=== PATIENT | male | born 1970 | race Caucasian/White ===

== ENCOUNTER → 2023-08-16 06:27 | Day surgery (SDC) | payer BC, SELFPAY ==
[2023-08-16 07:46] LABS: Glucose - Point of Care 120 mg/dl (70-99)
== END ==
LOC: GI 06:27
PROVIDERS: ATTENDING PHYSICIAN Internal Medicine Gastroenterology; FAMILY PHYSICIAN Internal Medicine Cardiovascular Disease
DX: R19.5 Other fecal abnormalities (principal); K57.30 Diverticulosis of large intestine without perforation or abscess without bleeding; K64.8 Other hemorrhoids
CPT/HCPCS: 45378; 82962